=== PATIENT | female | born 1930 | race Caucasian/White ===

== ENCOUNTER → 2017-03-05 | Outpatient (CLI) | payer MEDICARE, OTHER ==
[2014-05-23 14:26] VITALS: BMI 28.4
[~2017-03-05] MED LIST: BENA40TA51 PO; CYA1000I IM; CYAN25004 INJ; DIAZ-308 PO; FISH OIL1 CAP PO; FURO-47 PO; GLUC-198 PO; HYDR-4309 PO; HYDR2TAB4 PO; HYDR2TAB74 PO; IOPAMIDOL 76% 75 ML INFUS BTL 75 ML ONE; LEVO75TA68 PO; LIDOCAINE/SOD BICARB 8.4% SYR ID ONE; LOR5 PO; LOR5/325 PO; MECL25TA27 PO; METOPROLOL; MULT1CAP41 PO; NS 0.9% 50 ML VIAL 50 ML ONE; ONDA4TAB PO; ONDA4TAB9 PO; ONDA4TAB97 PO; OXYC-865 PO; PANT40TA65 PO; PRAV40TA77 PO; SCOT TD; THY60 PO; THYR15TA6 PO; [UNRECOGNIZED DRUG - CODE] PO
--- NOTE | 2017-03-05 11:19 | RADIOLOGY IMAGING REPORT ---
FACILITY: [facility] [place] PATIENT NAME: Jing Arce : 1930 MR: [id number] V: [id number] EXAM DATE: ORDERING PHYSICIAN: BEBE ROMAN TECHNOLOGIST: Location: [facility] [place] Patient: Jing Arce : 1930 Visit/Account:[id number] Date of Sevice: 03/05/2017 ABD SINGLE ORGAN/QUAD/FOLLOWUP HISTORY: Right lower quadrant pain rule out hernia at incision line closed umbilicus COMPARISON: CT and pelvis June 27, 2014 FINDINGS: Multiple sonographic images of the right lower quadrant were submitted in location of patient's pain. The images were performed both with and without a Valsalva maneuver. There was no demonstration of a ventral hernia. No abnormal fluid collections identified in the subcutaneous soft tissues. No so lid mass is demonstrated in this location IMPRESSION: No sonographic abnormality identified along the intra-abdominal wall the right lower quadrant Report Dictated By: Deanna Salinas MD at 03/05/2017 11:12 AM Report E-Signed By: Deanna Salinas MD at 03/05/2017 11:15 AM [id number]
--- NOTE | 2017-03-05 12:22 | RADIOLOGY IMAGING REPORT ---
[place] [facility] [place] NAME: Jing Arce : 1930 MR: [id number] V: [id number] EXAM DATE: ORDERING PHYSICIAN: BEBE ROMAN TECHNOLOGIST: Location: [facility] [place] Patient: Jing Arce : 1930 Visit/Account:[id number] Date of Sevice: 03/05/2017 ABDOMEN/PELVIS WITH CONTRAST HISTORY: Right lower quadrant pain TECHNIQUE: Following administration of IV contrast contiguous axial images acquired through the abdom en/pelvis. Coronal and sagittal reformatting also performed. Dose Lowering Technique One of the following dose optimization techniques was utilized in the performance of this exam: Autom ated exposure control; adjustment of the mA and/or kV according to the patient's size; or use of an i terative reconstruction technique. Specific details can be referenced in the facility's radiology C T exam operational policy. CONTRAST: 75 mL Isovue-370 COMPARISON: CT abdomen pelvis June 27, 2014 FINDINGS: Visualized lung bases: Negative. Hepatobiliary: There are postsurgical changes from a cholecystectomy. There is a small area of decr eased attenuation seen along the inferior liver adjacent to the gallbladder which appears some are to the prior study and likely represents an area of focal fatty infiltration Spleen: Negative. Adrenals: Negative. Pancreas: Negative. Kidneys ureters or bladder: There Is a 3.1 cm cyst lower pole the right kidney. Tiny hypodensity low er pole of the left kidney is too small to characterize. There is mild perinephric stranding bilater ally. Genitalia: Hysterectomy GI: There are postsurgical changes of the sigmoid colon.. Post surgical changes also noted at the c ecum . There is a small hiatal hernia Vessels/spaces/nodes: Extensive vascular calcifications in the abdomen and pelvis Bones/soft tissues: There is a very small umbilical hernia containing fat that appears unchanged whe n compared to the prior study. Calcifications are identified in the rectus sheath to the right of mi dline above the level of the umbilicus. Minimal infiltrative changes are seen subcutaneous fat . There are spondylotic changes of the lumbar spine including bulging discs from L1 to S1 Additional findings: None pertinent. IMPRESSION: Is a tiny umbilical hernia containing fat that appears unchanged when compared the prior study. Ther e are minimal infiltrative changes seen in in the subcutaneous fat and calcifications in the rectus s anamika just to the right and superior to the umbilicus. This was present on the prior study with the infiltrative changes appearing much less prominent. Postsurgical changes from a cholecystectomy and hysterectomy Postsurgical changes of the sigmoid colon and cecum Small hiatal hernia Report Dictated By: Deanna Salinas MD at 03/05/2017 12:06 PM Report E-Signed By: Deanna Salinas MD at 03/05/2017 12:17 PM WSN:[email or web address]
== END ==
LOC: US 07:16
PROVIDERS: ATTEND Physician Assistant
DX: K44.9 Diaphragmatic hernia without obstruction or gangrene (principal); Z90.710 Acquired absence of both cervix and uterus; Z90.49 Acquired absence of other specified parts of digestive tract; K42.9 Umbilical hernia without obstruction or gangrene; L98.6 Other infiltrative disorders of the skin and subcutaneous tissue; R93.3 Abnormal findings on diagnostic imaging of other parts of digestive tract; N28.1 Cyst of kidney, acquired; I70.8 Atherosclerosis of other arteries; M47.817 Spondylosis without myelopathy or radiculopathy, lumbosacral region
CPT/HCPCS: 74177; 76705; J7050; Q9967

== ENCOUNTER 2017-04-29 00:53 | Emergency (ER) | payer MEDICARE, OTHER ==
[2014-05-23 14:26] VITALS: Wt 77.1 kg
[~2017-04-29 00:53] MED LIST changes: -IOPAMIDOL 76% 75 ML INFUS BTL 75 ML ONE; -LIDOCAINE/SOD BICARB 8.4% SYR ID ONE; -NS 0.9% 50 ML VIAL 50 ML ONE
--- NOTE | 2017-04-29 01:03 | ER Report ---
History and Physical Time Seen By MD: 01:03 Hx. of Stated Complaint: PT COMPLAINS OF STRONG "STOMACH PAINS" THAT RADIATE TO BACK ON BOTH SIDES. HPI/ROS CHIEF COMPLAINT: stomach pains HISTORY OF PRESENT ILLNESS: This is an 86 year old female. She is having some stomach pain. Diffuse pain, started about 6pm tonight. She has no nausea or vomiting. She had no diarrhea. Had a bowel movement when the pain started. No blood in stool. No fevers or chills. Did eat a big meal tonight and thinks that maybe that was part of the problem. 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 Nothing makes the pain worse. Walking and standing do make the pain better. Has some radiation to the sides and back. She has a history of pancreatitis in the past, but this feels differently. REVIEW OF SYSTEMS: Constitutional: No fever or chills. Eyes: No vision changes. ENT: No sore throat. No congestion. Cardiovascular: No chest pain. No palpitations. Respiratory: No cough. No shortness of breath. Gastrointestinal: As above. Genitourinary: No dysuria. Musculoskeletal: No extremity pain. Skin: No rashes. Neurological: No weakness. No headache. Allergies: Coded Allergies: celecoxib (Verified Allergy, Severe, TROUBLE BREATHING, 04/29/17) naproxen (Verified Allergy, Severe, TROUBLE BREATHING, 04/29/17) nitrofurantoin (Verified Allergy, Intermediate, SHORTNESS OF BREATH, ) ALSO CHILLS, SHAKING rofecoxib (Verified Allergy, Intermediate, SHORTNESS OF BREATH, 04/29/17) ALSO ITCHING, Penicillins (Verified Allergy, Unknown, ITCHING, 04/29/17) gabapentin (Verified Allergy, Unknown, fainting, 04/29/17) levofloxacin (Verified Allergy, Unknown, RASH, 04/29/17) Home Meds Reported Medications Pregabalin (LYRICA) 100 Mg Capsule, 100 MG PO TID, CAPSULE 04/29/17 Zolpidem Tartrate (AMBIEN) 5 Mg Tablet, 1 TAB PO QHS, TAB 04/29/17 Amlodipine Besylate (AMLODIPINE BESYLATE) 5 Mg Tablet, 1 TAB PO QDAY, TAB 04/29/17 Cyanocobalamin (Vitamin B-12) (Vitamin B12) 2,500 Mcg Tablet, 2000 UNITS INJ 08/19/15 Levothyroxine Sodium (SYNTHROID) 75 Mcg Tablet, 75 MCG PO QDAY 12/14/13 Discontinued Reported Medications Methyldopa (METHYLDOPA) 500 Mg Tablet, 1000 MG PO BID 11/17/14 Discontinued Scripts Diazepam (DIAZEPAM) 5 Mg Tablet, 2.5-5 MG PO 2-3XD Y for DIZZINESS, #15 TAB Prov:MAGDALENA VANCE BEHAVIORAL CONSULTANT 12/13/15 Ondansetron (ZOFRAN ODT) 4 Mg Tab.rapdis, 4 MG PO Q12H, #10 TAB TAKE 1 TABLET BY MOUTH EVERY 12 HOURS Prov:BG MCLAIN W[employer]ER 08/30/15 Hydrocodone Bit/Acetaminophen (NORCO 5-325 TABLET) 1 Each Tablet, 1 EACH PO Q4- 6H Y for PAIN, #20 TAB Prov:MAGDALENA VANCE BEHAVIORAL CONSULTANT 08/19/15 Reviewed Nurses Notes: Yes Hx Smoking: Yes (SMOKED < 1 PPD FOR 'YEARS') Smoking Status: Former Smoker Exposure to Second Hand Smoke?: No Hx Substance Use Disorder: No Hx Alcohol Use: Yes Constitutional Vital Sign - Last 24 Hours 04/29/17 04/29/17 04/29/17 04/29/17 00:58 00:59 01:00 01:08 Temp 97.7 Pulse 110 Resp 16 B/P (MAP) 154/75 (101) 154/75 141/84 (103) Pulse Ox 91 89 O2 Delivery Room Air 04/29/17 04/29/17 04/29/17 04/29/17 01:23 01:53 01:58 02:00 Pulse 80 75 73 B/P (MAP) 140/72 (94) Pulse Ox 92 94 94 04/29/17 02:13 Pulse 80 Pulse Ox 90 Physical Exam General Appearance: The patient is alert. Having mild acute distress due to pain. Eyes: Pupils are equal, round. No pallor, injection or icterus. ENT: Mucous membranes are moist. Normal oral mucosa. Posterior oropharynx is normal. Neck: Supple and non tender. No lymphadenopathy. Respiratory: Lungs are clear to auscultation. Cardiovascular: Regular rate and rhythm. No murmurs, gallops or rubs. Normal capillary refill. Gastrointestinal: Abdomen is soft, diffuse discomfort, no focal pain. Nondistended. No rebound or guarding. Hyperactive bowel sounds. No costovertebral angle tenderness with percussion. Neurological: Alert and oriented x3. Skin: Warm and dry. DIFFERENTIAL DIAGNOSIS: After history and physical exam, differential diagnosis was considered for abdominal pain including but not limited to appendicitis, enteritis, gastritis, pancreatitis, indigestion, bowel obstruction and urinary tract infection. Medical Decision Making Data Points Result Diagram: 04/29/17 0120 04/29/17 0120 Laboratory Hematology Test 04/29/17 01:20 Red Blood Count 4.65 M/uL (4.17-5.56) Mean Corpuscular Volume 94.6 fL (80.0-96.0) Mean Corpuscular Hemoglobin 31.6 pg (26.0-33.0) Mean Corpuscular Hemoglobin Concent 33.4 g/dL (32.0-36.0) Red Cell Distribution Width 13.4 % (11.5-14.5) Mean Platelet Volume 8.0 fL (7.2-11.1) Neutrophils (%) (Auto) 54.6 % (39.4-72.5) Lymphocytes (%) (Auto) 37.5 % (17.6-49.6) Monocytes (%) (Auto) 6.4 % (4.1-12.4) Eosinophils (%) (Auto) 1.2 % (0.4-6.7) Basophils (%) (Auto) 0.3 % (0.3-1.4) Nucleated RBC Relative Count (auto) 0.1 /100WBC Neutrophils # (Auto) 7.4 K/uL (2.0-7.4) Lymphocytes # (Auto) 5.0 K/uL (1.3-3.6) Monocytes # (Auto) 0.9 K/uL (0.3-1.0) Eosinophils # (Auto) 0.2 K/uL (0.0-0.5) Basophils # (Auto) 0.0 K/uL (0.0-0.1) Nucleated RBC Absolute Count (auto) 0.01 K/uL Sodium Level 140 mmol/L (137-145) Potassium Level 4.0 mmol/L (3.5-5.0) Chloride Level 106 mmol/L (98-107) Carbon Dioxide Level 20 mmol/L (22-31) Blood Urea Nitrogen 19 mg/dl (7-18) Creatinine 1.10 mg/dl (0.52-1.04) Glomerular Filtration Rate Calc 47.0 Random Glucose 127 mg/dl (75-110) Lactate 1.6 mmol/L (0.7-2.1) Calcium Level 9.4 mg/dl (8.4-10.2) Total Bilirubin 0.4 mg/dl (0.2-1.3) Aspartate Amino Transf (AST/SGOT) 20 U/L (0-35) Alanine Aminotransferase (ALT/SGPT) 33 U/L (0-56) Alkaline Phosphatase 73 U/L (0-126) Total Protein 6.7 gm/dl (6.3-8.2) Albumin 4.0 g/dl (3.5-5.0) Amylase Level 47 U/L (0-110) Lipase 57 U/L (23-300) Chemistry Test 04/29/17 01:20 White Blood Count 13.5 k/uL (4.5-11.0) Red Blood Count 4.65 M/uL (4.17-5.56) Hemoglobin 14.7 g/dL (12.0-16.0) Hematocrit 44.0 % (34.0-47.0) Mean Corpuscular Volume 94.6 fL (80.0-96.0) Mean Corpuscular Hemoglobin 31.6 pg (26.0-33.0) Mean Corpuscular Hemoglobin Concent 33.4 g/dL (32.0-36.0) Red Cell Distribution Width 13.4 % (11.5-14.5) Platelet Count 209 K/uL (150-450) Mean Platelet Volume 8.0 fL (7.2-11.1) Neutrophils (%) (Auto) 54.6 % (39.4-72.5) Lymphocytes (%) (Auto) 37.5 % (17.6-49.6) Monocytes (%) (Auto) 6.4 % (4.1-12.4) Eosinophils (%) (Auto) 1.2 % (0.4-6.7) Basophils (%) (Auto) 0.3 % (0.3-1.4) Nucleated RBC Relative Count (auto) 0.1 /100WBC Neutrophils # (Auto) 7.4 K/uL (2.0-7.4) Lymphocytes # (Auto) 5.0 K/uL (1.3-3.6) Monocytes # (Auto) 0.9 K/uL (0.3-1.0) Eosinophils # (Auto) 0.2 K/uL (0.0-0.5) Basophils # (Auto) 0.0 K/uL (0.0-0.1) Nucleated RBC Absolute Count (auto) 0.01 K/uL Glomerular Filtration Rate Calc 47.0 Lactate 1.6 mmol/L (0.7-2.1) Calcium Level 9.4 mg/dl (8.4-10.2) Total Bilirubin 0.4 mg/dl (0.2-1.3) Aspartate Amino Transf (AST/SGOT) 20 U/L (0-35) Alanine Aminotransferase (ALT/SGPT) 33 U/L (0-56) Alkaline Phosphatase 73 U/L (0-126) Total Protein 6.7 gm/dl (6.3-8.2) Albumin 4.0 g/dl (3.5-5.0) Amylase Level 47 U/L (0-110) Lipase 57 U/L (23-300) EKG/Imaging Imaging ACUTE ABDOMEN SERIES 3 VIEW HISTORY: Abdominal pain. COMPARISON: CT abdomen and pelvis dated 03/05/2017. FINDINGS: PA upright view of the chest, AP supine and AP upright views of the abdomen are obtained. Lines/tubes: None. Bowel gas pattern: No evidence of bowel obstruction or free air. Soft tissues: Right upper quadrant surgical clips. Pelvic phleboliths. Arterial calcifications. Bilateral axillary surgical clips. Bony structures: Degenerative changes in the spine. Mild bilateral hip osteoarthritis. Visualized lungs: Negative. IMPRESSION: 1. No evidence of bowel obstruction or free air. 2. No acute cardiopulmonary process. Report Dictated By: Myles Morfin MD at 04/29/2017 1:54 AM ED Course/Re-evaluation Clinical Indication for ER IV: IV Access ED Course After my initial evaluation, suggested doing a CT scan, but the patient did not want a CT as she had one a couple of weeks ago. Has seen Dr. Murray recently for evaluation for a hernia, and had no problems. She agreed to do blood and urine testing and a urinalysis. We did an abdominal 3 view, which she was alright with. Pain was treated with 2mg of IV Morphine and 4mg of IV Zofran. She is feeling much better now. Pain is mostly gone. Labs showed slight changes in her kidney function. Slight elevation of white blood cell count. Imaging with no signs of obstruction with a nonspecific bowel gas pattern. Discussed all of this with the patient. After our discussion, I offered further testing or tying some pain medicines at home to see how she does. She would prefer to go home with pain medicine and return if things are worsening and only do more testing at that time. Decision to Disposition Date: Apr 29, 2017 Decision to Disposition Time: 02:28 Depart Departure Latest Vital Signs Vital Signs Date Time Temp Pulse Resp B/P (MAP) Pulse Ox O2 Delivery O2 Flow Rate FiO2 04/29/17 02:13 80 90 04/29/17 02:00 140/72 (94) 04/29/17 00:59 97.7 16 Room Air Impression: Primary Impression: Abdominal pain Condition: Improved Disposition: HOME OR SELF-CARE Referrals: CHERIE HARTMANN MD (PCP) Patient Instructions: Acute Abdominal Pain (ED) Additional Instructions: We did not find any signs of bowel obstruction. Your labs are looking alright. You have some mild changes to your kidney function and need to increase fluid intake. No signs of pancreatitis. White count slightly elevated, but normal types of white cells in the differential. Pain has improved. If you have worsening pain, fevers/chills, or nausea/vomiting, please return to the ER for re-evaluation. You can use Zofran 4mg, one every 6 hours as needed for nausea. You can use Lortab 5/325, one every 4 hours as needed for pain. Problem Qualifiers Primary Impression: Abdominal pain Abdominal location: generalized Qualified Codes: R10.84 - Generalized abdominal pain ROBERT DUMONT MD Apr 29, 2017 01:03
[2017-04-29] MEDS ORDERED: AMLO-96 PO (01:04)
[2017-04-29] MEDS ORDERED: PREG100C44 PO (01:05)
[2017-04-29] MEDS ORDERED: ZOLP-1 PO (01:05)
[2017-04-29 01:44] LABS: PLATELET COUNT, AUTOMATED 209 K/uL (150-450)
[2017-04-29 02:00] VITALS: BP 140/72
[2017-04-29] MEDS ORDERED: ONDANSETRON 4 MG/2 ML VIAL IVP ONE (02:00)
[2017-04-29] MEDS ORDERED: MORPHINE 2 MG/ML SYR IVP ONE (02:00)
--- NOTE | 2017-04-29 02:03 | RADIOLOGY IMAGING REPORT ---
[place]AC[place] [facility] [place]IENT NAME: Jing Arce : 1930 MR: [id number] V: [id number] EXAM DATE: ORDERING PHYSICIAN: ROBERT DUMONT TECHNOLOGIST: Location: [facility] Patient: Jing Arce : 1930 Visit/Account:[id number] Date of Sevice: 04/29/2017 ACUTE ABDOMEN SERIES 3 VIEW HISTORY: Abdominal pain. COMPARISON: CT abdomen and pelvis dated 03/05/2017. FINDINGS: PA upright view of the chest, AP supine and AP upright views of the abdomen are obtained. Lines/tubes: None. Bowel gas pattern: No evidence of bowel obstruction or free air. Soft tissues: Right upper quadrant surgical clips. Pelvic phleboliths. Arterial calcifications. Bila teral axillary surgical clips. Bony structures: Degenerative changes in the spine. Mild bilateral hip osteoarthritis. Visualized lungs: Negative. IMPRESSION: 1. No evidence of bowel obstruction or free air. 2. No acute cardiopulmonary process. Report Dictated By: Myles Morfin MD at 04/29/2017 1:54 AM Report E-Signed By: Myles Morfin MD at 04/29/2017 1:57 AM WSN:[id number]
[2017-04-29] MEDS ORDERED: ACET/HYDROC 5/325MG TH ER ONLY 2 TAB/BOTTLE PO ONE (02:15)
[2017-04-29] MEDS ORDERED: ONDANSETRON 4 MG ODT TH SL ONE (02:15)
== END 2017-04-29 02:40 | disposition home or self-care (01) ==
LOC: ER 01:19
DX: R10.84 Generalized abdominal pain (principal)
CPT/HCPCS: 74022; 82150; 83605; 83690; 85025; 96374; 96375; 99284; J2270; J2405; Q0162; 82040; 82247; 82310; 82374; 82435; 82565; 82947; 84075; 84132; 84155; 84295; 84450; 84460; 84520; S0119

== ENCOUNTER 2017-04-29 14:28 | Inpatient (IN) | payer MEDICARE, OTHER ==
[2014-05-23 14:26] VITALS: Ht 166.4 cm; Wt 77.3 kg
[~2017-04-29] VITALS: Ht 166.4 cm; Wt 77.3 kg
[~2017-04-29 14:28] MED LIST changes: +AMLO-96 PO; +PREG100C44 PO; +ZOLP-1 PO
--- NOTE | 2017-04-29 14:58 | ER Report ---
History and Physical Time Seen By MD: 14:38 Hx. of Stated Complaint: was here last night for n/v/flu like symptoms. back today for the same thing. had zofran around 1:30pm today HPI/ROS chief concern: nausea/vomiting HPI: 86 y/o female presents with concern of nausea and vomiting x3 this morning. Seen in ED last night for stomach pain. Declined CT of abdomen. Returned today as she began vomiting "brown, rust-colored" fluid. Reports chills /sweats. Reports bowel movements have been watery since gallbladder removal three years ago, denies bowel changes. Denies urinary changes, heartburn, shortness of breath, dyspnea, chest pain. Review of Systems: HENT: Denies sore throat, heartburn Respiratory: Denies shortness of breath, dyspnea CV: Denies chest pain GI: Reports nausea/vomiting x3 this AM. Describes emesis as "brown, rust-colored ". Denies diarrhea. Allergies: Coded Allergies: celecoxib (Verified Allergy, Severe, TROUBLE BREATHING, 04/29/17) naproxen (Verified Allergy, Severe, TROUBLE BREATHING, 04/29/17) nitrofurantoin (Verified Allergy, Intermediate, SHORTNESS OF BREATH, ) ALSO CHILLS, SHAKING rofecoxib (Verified Allergy, Intermediate, SHORTNESS OF BREATH, 04/29/17) ALSO ITCHING, Penicillins (Verified Allergy, Unknown, ITCHING, 04/29/17) gabapentin (Verified Allergy, Unknown, fainting, 04/29/17) levofloxacin (Verified Allergy, Unknown, RASH, 04/29/17) Home Meds Reported Medications Pregabalin (LYRICA) 100 Mg Capsule, 100 MG PO TID, CAPSULE 04/29/17 Zolpidem Tartrate (AMBIEN) 5 Mg Tablet, 1 TAB PO QHS, TAB 04/29/17 Amlodipine Besylate (AMLODIPINE BESYLATE) 5 Mg Tablet, 1 TAB PO QDAY, TAB 04/29/17 Cyanocobalamin (Vitamin B-12) (Vitamin B12) 2,500 Mcg Tablet, 2000 UNITS INJ 08/19/15 Levothyroxine Sodium (SYNTHROID) 75 Mcg Tablet, 75 MCG PO QDAY 12/14/13 Discontinued Reported Medications Methyldopa (METHYLDOPA) 500 Mg Tablet, 1000 MG PO BID 11/17/14 Discontinued Scripts Diazepam (DIAZEPAM) 5 Mg Tablet, 2.5-5 MG PO 2-3XD Y for DIZZINESS, #15 TAB Prov:MAGDALENA VANCE [employer]KE [employer] WORK[employer] 12/13/15 Ondansetron (ZOFRAN ODT) 4 Mg Tab.rapdis, 4 MG PO Q12H, #10 TAB TAKE 1 TABLET BY MOUTH EVERY 12 HOURS Prov:BG MCLAIN NP 08/30/15 Hydrocodone Bit/Acetaminophen (NORCO 5-325 TABLET) 1 Each Tablet, 1 EACH PO Q4- 6H Y for PAIN, #20 TAB Prov:MAGDALENA VANCE [employer] 08/19/15 Past Medical/Surgical History History of hysterectomy, cholecystectomy, bowel resection d/t diverticulitis 2012; hospitalization for pancreatitis 2014; history of breast and skin cancer Hypertension, hypercholesterolemia. Reviewed Nurses Notes: Yes Old Medical Records Reviewed: Yes Hx Smoking: Yes (SMOKED < 1 PPD FOR 'YEARS') Smoking Status: Former Smoker Exposure to Second Hand Smoke?: No Hx Substance Use Disorder: No Hx Alcohol Use: Yes Constitutional Vital Sign - Last 24 Hours 04/29/17 04/29/17 04/29/17 04/29/17 14:32 14:34 14:43 14:50 Temp 96.8 Pulse 70 72 Resp 16 B/P (MAP) 138/56 138/56 (83) Pulse Ox 85 96 O2 Delivery Room Air O2 Flow Rate 2.0 04/29/17 04/29/17 04/29/17 04/29/17 14:58 15:00 15:13 15:28 Pulse 69 68 69 Resp 29 B/P (MAP) ???/??? (7595) Pulse Ox 97 94 97 04/29/17 04/29/17 04/29/17 04/29/17 15:30 15:43 15:56 15:58 Pulse 72 81 Resp 10 B/P (MAP) ???/??? (4655) 138/75 (96) Pulse Ox 98 90 04/29/17 04/29/17 04/29/17 04/29/17 16:30 16:33 16:48 16:53 Pulse 80 84 74 Resp 30 21 20 B/P (MAP) 128/60 (82) 04/29/17 04/29/17 04/29/17 04/29/17 17:00 17:08 17:23 17:30 Pulse 78 77 Resp 22 17 B/P (MAP) 121/71 (88) 142/71 (94) 04/29/17 04/29/17 04/29/17 04/29/17 17:38 17:53 17:58 18:00 Pulse 77 77 70 Resp 19 20 22 B/P (MAP) 122/58 (79) Pulse Ox 94 04/29/17 04/29/17 04/29/17 04/29/17 18:13 18:28 18:30 18:43 Pulse 84 76 73 Resp 37 12 35 B/P (MAP) 118/32 (60) 04/29/17 04/29/17 04/29/17 18:58 19:00 19:13 Pulse 69 67 Resp 14 19 B/P (MAP) 120/57 (78) Intake and Output 04/29/17 04/29/17 04/30/17 15:00 23:00 07:00 Intake Total 1000 ml Balance 1000 ml Physical Exam Physical Exam: General: Alert, oriented x3. Patient appears in some discomfort during exam. HENT: Posterior pharynx pink, no lymphadenopathy. Respiratory: Clear to auscultation bilaterally. No respiratory distress. CV: Regular rate and rhythm. No peripheral edema. GI: Hypoactive bowel sounds left quadrants. Bowel sounds normoactive right quadrants. Scattered sounds of tympany and dullness to percussion. Tenderness to palpation right quadrants, with palpable adhesions. No hepatosplenomegaly. Negative CVA tenderness. After obtaining thorough HPI and ROS, the following differentials were considered but not limited to: bowel obstruction, hepatitis, pancreatitis, TX, diverticulitis, and UTI. Medical Decision Making Data Points Result Diagram: 04/29/17 1446 04/29/17 1446 Laboratory Hematology Test 04/29/17 14:46 04/29/17 16:01 Red Blood Count 4.62 M/uL (4.17-5.56) Mean Corpuscular Volume 94.7 fL (80.0-96.0) Mean Corpuscular Hemoglobin 31.8 pg (26.0-33.0) Mean Corpuscular Hemoglobin Concent 33.5 g/dL (32.0-36.0) Red Cell Distribution Width 13.7 % (11.5-14.5) Mean Platelet Volume 8.4 fL (7.2-11.1) Neutrophils (%) (Auto) 70.3 % (39.4-72.5) Lymphocytes (%) (Auto) 23.3 % (17.6-49.6) Monocytes (%) (Auto) 5.2 % (4.1-12.4) Eosinophils (%) (Auto) 0.4 % (0.4-6.7) Basophils (%) (Auto) 0.8 % (0.3-1.4) Nucleated RBC Relative Count (auto) 0.1 /100WBC Neutrophils # (Auto) 10.2 K/uL (2.0-7.4) Lymphocytes # (Auto) 3.4 K/uL (1.3-3.6) Monocytes # (Auto) 0.8 K/uL (0.3-1.0) Eosinophils # (Auto) 0.1 K/uL (0.0-0.5) Basophils # (Auto) 0.1 K/uL (0.0-0.1) Nucleated RBC Absolute Count (auto) 0.02 K/uL Peripheral Blood Smear Yes Y/N Prothrombin Time 14.0 seconds (12.0-14.4) Prothromb Time International Ratio 1.08 Sodium Level 140 mmol/L (137-145) Potassium Level 4.8 mmol/L (3.5-5.0) Chloride Level 104 mmol/L (98-107) Carbon Dioxide Level 21 mmol/L (22-31) Blood Urea Nitrogen 23 mg/dl (7-18) Creatinine 1.10 mg/dl (0.52-1.04) Glomerular Filtration Rate Calc 47.0 Random Glucose 135 mg/dl (75-110) Calcium Level 9.1 mg/dl (8.4-10.2) Total Bilirubin 0.7 mg/dl (0.2-1.3) Aspartate Amino Transf (AST/SGOT) 33 U/L (0-35) Alanine Aminotransferase (ALT/SGPT) 33 U/L (0-56) Alkaline Phosphatase 81 U/L (0-126) Troponin I < 0.012 ng/ml Total Protein 7.4 gm/dl (6.3-8.2) Albumin 4.3 g/dl (3.5-5.0) Amylase Level 74 U/L (0-110) Lipase 44 U/L (23-300) Urine Color Yellow Urine Clarity Slightly-cloudy Urine pH 5.0 pH (4.8-9.5) Urine Specific [place] 1.018 Urine Protein Negative mg/dL (NEGATIVE) Urine Glucose (UA) Negative mg/dL (NEGATIVE) Urine Ketones Trace mg/dL (NEGATIVE) Urine Blood Negative (NEGATIVE) Urine Nitrite Negative (NEGATIVE) Urine Bilirubin Negative (NEGATIVE) Urine Urobilinogen Negative mg/dL (0.2-1.9) Urine Leukocyte Esterase Negative (NEGATIVE) Urine RBC None /HPF (0-2/HPF) Urine WBC 1 /HPF (0-5/HPF) Urine Squamous Epithelial Cells Moderate /LPF (</=FEW) Urine Renal Epithelial Cells Few /LPF (NONE-FEW) Urine Bacteria Negative /HPF (NONE-FEW) Urine Hyaline Casts Few /LPF (NONE-FEW) Urine Mucus Few /HPF (NONE-FEW) Chemistry Test 04/29/17 14:46 04/29/17 16:01 White Blood Count 14.5 k/uL (4.5-11.0) Red Blood Count 4.62 M/uL (4.17-5.56) Hemoglobin 14.7 g/dL (12.0-16.0) Hematocrit 43.8 % (34.0-47.0) Mean Corpuscular Volume 94.7 fL (80.0-96.0) Mean Corpuscular Hemoglobin 31.8 pg (26.0-33.0) Mean Corpuscular Hemoglobin Concent 33.5 g/dL (32.0-36.0) Red Cell Distribution Width 13.7 % (11.5-14.5) Platelet Count 231 K/uL (150-450) Mean Platelet Volume 8.4 fL (7.2-11.1) Neutrophils (%) (Auto) 70.3 % (39.4-72.5) Lymphocytes (%) (Auto) 23.3 % (17.6-49.6) Monocytes (%) (Auto) 5.2 % (4.1-12.4) Eosinophils (%) (Auto) 0.4 % (0.4-6.7) Basophils (%) (Auto) 0.8 % (0.3-1.4) Nucleated RBC Relative Count (auto) 0.1 /100WBC Neutrophils # (Auto) 10.2 K/uL (2.0-7.4) Lymphocytes # (Auto) 3.4 K/uL (1.3-3.6) Monocytes # (Auto) 0.8 K/uL (0.3-1.0) Eosinophils # (Auto) 0.1 K/uL (0.0-0.5) Basophils # (Auto) 0.1 K/uL (0.0-0.1) Nucleated RBC Absolute Count (auto) 0.02 K/uL Peripheral Blood Smear Yes Y/N Prothrombin Time 14.0 seconds (12.0-14.4) Prothromb Time International Ratio 1.08 Glomerular Filtration Rate Calc 47.0 Calcium Level 9.1 mg/dl (8.4-10.2) Total Bilirubin 0.7 mg/dl (0.2-1.3) Aspartate Amino Transf (AST/SGOT) 33 U/L (0-35) Alanine Aminotransferase (ALT/SGPT) 33 U/L (0-56) Alkaline Phosphatase 81 U/L (0-126) Troponin I < 0.012 ng/ml Total Protein 7.4 gm/dl (6.3-8.2) Albumin 4.3 g/dl (3.5-5.0) Amylase Level 74 U/L (0-110) Lipase 44 U/L (23-300) Urine Color Yellow Urine Clarity Slightly-cloudy Urine pH 5.0 pH (4.8-9.5) Urine Specific [place] 1.018 Urine Protein Negative mg/dL (NEGATIVE) Urine Glucose (UA) Negative mg/dL (NEGATIVE) Urine Ketones Trace mg/dL (NEGATIVE) Urine Blood Negative (NEGATIVE) Urine Nitrite Negative (NEGATIVE) Urine Bilirubin Negative (NEGATIVE) Urine Urobilinogen Negative mg/dL (0.2-1.9) Urine Leukocyte Esterase Negative (NEGATIVE) Urine RBC None /HPF (0-2/HPF) Urine WBC 1 /HPF (0-5/HPF) Urine Squamous Epithelial Cells Moderate /LPF (</=FEW) Urine Renal Epithelial Cells Few /LPF (NONE-FEW) Urine Bacteria Negative /HPF (NONE-FEW) Urine Hyaline Casts Few /LPF (NONE-FEW) Urine Mucus Few /HPF (NONE-FEW) Coagulation Test 3/13/18 14:46 Prothrombin Time 14.0 seconds Prothromb Time International Ratio 1.08 Urinalysis Test 04/29/17 16:01 Urine Color Yellow Urine Clarity Slightly-cloudy Urine pH 5.0 pH (4.8-9.5) Urine Specific [place] 1.018 Urine Protein Negative mg/dL (NEGATIVE) Urine Glucose (UA) Negative mg/dL (NEGATIVE) Urine Ketones Trace mg/dL (NEGATIVE) Urine Blood Negative (NEGATIVE) Urine Nitrite Negative (NEGATIVE) Urine Bilirubin Negative (NEGATIVE) Urine Urobilinogen Negative mg/dL (0.2-1.9) Urine Leukocyte Esterase Negative (NEGATIVE) Urine RBC None /HPF (0-2/HPF) Urine WBC 1 /HPF (0-5/HPF) Urine Squamous Epithelial Cells Moderate /LPF (</=FEW) Urine Renal Epithelial Cells Few /LPF (NONE-FEW) Urine Bacteria Negative /HPF (NONE-FEW) Urine Hyaline Casts Few /LPF (NONE-FEW) Urine Mucus Few /HPF (NONE-FEW) EKG/Imaging Monitor Interpretation: Normal Sinus Rhythm (incomplete right bundle branch block) Imaging ABDOMEN/PELVIS WITH CONTRAST Additional pertinent History: Abdominal pain TECHNIQUE: Spiral scan was through the abdomen and pelvis during injection of nonionic iodinated intravenous contrast. Contrast: 75 mL of IV Isovue-370. COMPARISON STUDIES: 03/05/2017. One of the following dose optimization techniques was utilized in the performance of this exam: Automated exposure control; adjustment of the mA and/ or kV according to the patient's size; or use of an iterative reconstruction technique. Specific details can be referenced in the facility's radiology CT exam operational policy. FINDINGS: Liver / biliary: Status post cholecystectomy Pancreas: negative Spleen: negative Adrenal glands: negative Kidneys / retroperitoneum: Simple appearing 3 cm cyst in the right kidney. Parapelvic cysts seen in the left kidney. Pelvic structures: Status post hysterectomy. Bowel / peritoneum / mesenteries: Small bowel obstruction noted. Transition point noted in the anterior mid abdomen near a suture line. This is well seen on axial images 79 through 93. The most distal small bowel obstructive loop has fecal lysed material (image 86) there is a colonic enteric suture line seen in the descending colon. There is also a colonic enteric anastomotic line seen in the sigmoid colon. There are diverticuli without evidence of diverticulitis. Vessels: negative Musculoskeletal / Body wall: negative Lymph node assessment: negative Lower chest: negative IMPRESSION: Small bowel obstruction with transition point in the anterior mid abdomen at the point of probable HCC small bowel up against the anterior abdominal wall near a suture line. Results were discussed with MAGDALENA VANCE at 04/29/2017 5:12 PM. Report Dictated By: Jose E Barrera MD at 04/29/2017 4:50 PM Report E-Signed By: Jose E Barrera MD at 04/29/2017 5:12 PM CHEST PA AND LAT INDICATION: Abdomen pain COMPARISON: August 30, 2015 FINDINGS: Cholecystectomy clips and bilateral axillary clips noted. The cardiac silhouette is normal in size. No pneumothorax. Minimal biapical pleural-parenchymal scarring. Otherwise clear lungs. No acute osseous abnormality. No apparent free air. No pleural fluid. IMPRESSION: No acute finding. Report Dictated By: Valente Moy MD at 04/29/2017 4:51 PM Report E-Signed By: Valente Moy MD at 04/29/2017 4:52 PM Portable chest, one view. HISTORY: NG tube placement. COMPARISON: 04/29/2017 at 0427 hours. 2 images were obtained. EKG leads and oxygen tubing project on the chest. A vague lucent line projects on the neck. The aortic knob is calcified. The heart and mediastinum are otherwise unremarkable. Pulmonary vessels are unremarkable. The lungs are clear. The pleural surfaces are unremarkable. No pneumothorax. Metal clips are present in the right upper abdomen and both axillae. IMPRESSION: The NG tube is not well-visualized. Report Dictated By: Otto Darby MD at 04/29/2017 7:10 PM Report E-Signed By: Otto Darby MD at 04/29/2017 7:14 PM ED Course/Re-evaluation ED Course Patient admitted to exam room. Thorough HPI and ROS obtained. Physical exam: Respiratory: Clear to auscultation bilaterally. No respiratory distress. CV: Regular rate and rhythm. No peripheral edema. GI: Hypoactive bowel sounds left quadrants. Bowel sounds normoactive right quadrants. Scattered sounds of tympany and dullness to percussion. Tenderness to palpation right quadrants, with palpable adhesions. No hepatosplenomegaly. Negative CVA tenderness. After obtaining thorough HPI and ROS, the following differentials were considered but not limited to: bowel obstruction, hepatitis, pancreatitis, TX, diverticulitis, and UTI. Labs obtained included CBC, CMP, UA, PT, troponin, Imaging: CXR, ABD CT 500ml normal saline administered. CT IMPRESSION: Small bowel obstruction with transition point in the anterior mid abdomen at the point of probable HCC small bowel up against the anterior abdominal wall near a suture line. CXR with no abnormal findings. Findings and need to admit to hospital discussed with patient. NG tube placed without complications. Xray to verify placement. Patient verbalised understanding and agreed to plan. Decision to Disposition Date: Apr 29, 2017 Decision to Disposition Time: 18:00 Depart Departure Latest Vital Signs Vital Signs Date Time Temp Pulse Resp B/P (MAP) Pulse Ox O2 Delivery O2 Flow Rate FiO2 04/29/17 19:13 67 19 04/29/17 19:00 120/57 (78) 04/29/17 17:38 94 04/29/17 14:50 2.0 04/29/17 14:32 96.8 Room Air Impression: Primary Impression: Small bowel obstruction due to adhesions Condition: Condition Unchanged Disposition: Admitted from ER Referrals: CHERIE HARTMANN MD (PCP) MAGDALENA VANCE Apr 29, 2017 14:58
[2017-04-29 15:31] LABS: INR 1.08
--- NOTE | 2017-04-29 15:35 | EKG ---
FACILITY: [facility] - [place] PATIENT NAME: YONAS DELONG : [id number] MR: [id number] V: [id number] EXAM DATE: ORDERING PHYSICIAN: MAGDALENA VANCE TECHNOLOGIST: RICHARD Test Reason : ABD PAIN Blood Pressure : / mmHG Vent. Rate : 064 BPM Atrial Rate : 064 BPM P-R Int : 186 ms QRS Dur : 092 ms QT Int : 426 ms P-R-T Axes : 065 -12 083 degrees QTc Int : 439 ms Normal sinus rhythm Incomplete right bundle branch block Borderline ECG When compared with ECG of 23-AUG-2016 09:37, No significant change was found Confirmed by RAFAELA DILLARD ([id number]) on 04/29/2017 11:45:48 PM Referred By: RAJIV Confirmed By:RAFAELA DILLARD
[2017-04-29 15:38] LABS: PLATELET COUNT, AUTOMATED 231 K/uL (150-450)
[2017-04-29] MEDS ORDERED: NS(*) 0.9% 500 ML BAG 500 ML IV ONE (15:40)
[2017-04-29] MEDS ORDERED: IOPAMIDOL 76% 75 ML INFUS BTL 75 ML ONE (16:10)
[2017-04-29] MEDS ORDERED: NS(*) 0.9% 1000 ML BAG 1,000 ML IV ONE (16:15)
--- NOTE | 2017-04-29 16:57 | RADIOLOGY IMAGING REPORT ---
FACILITY: [facility] - [place] PATIENT NAME: Jing Arce : 1930 MR: [id number] V: [id number] EXAM DATE: ORDERING PHYSICIAN: MAGDALENA VANCE TECHNOLOGIST: [place] [facility] [place] Jing Arce : 1930 Visit/Account:[id number] Date of Sevice: 04/29/2017 CHEST PA AND LAT INDICATION: Abdomen pain COMPARISON: August 30, 2015 FINDINGS: Cholecystectomy clips and bilateral axillary clips noted. The cardiac silhouette is normal in size. No pneumothorax. Minimal biapical pleural-parenchymal scarring. Otherwise clear lungs. No acute osseous abnormality. No apparent free air. No pleural fluid. IMPRESSION: No acute finding. Report Dictated By: Valente Moy MD at 04/29/2017 4:51 PM Report E-Signed By: Valente Moy MD at 04/29/2017 4:52 PM WSN:[id number]
--- NOTE | 2017-04-29 17:16 | RADIOLOGY IMAGING REPORT ---
FACILITY: [facility] PATIENT NAME: Jing Arce : 1930 MR: [id number] V: [id number] EXAM DATE: ORDERING PHYSICIAN: MAGDALENA VANCE TECHNOLOGIST: Location: [facility] Patient: Jing Arce : 1930 Visit/Account:[id number] Date of Sevice: 04/29/2017 ABDOMEN/PELVIS WITH CONTRAST Additional pertinent History: Abdominal pain TECHNIQUE: Spiral scan was through the abdomen and pelvis during injection of nonionic iodinated in travenous contrast. Contrast: 75 mL of IV Isovue-370. COMPARISON STUDIES: 03/05/2017. One of the following dose optimization techniques was utilized in the performance of this exam: Autom ated exposure control; adjustment of the mA and/or kV according to the patient's size; or use of an i terative reconstruction technique. Specific details can be referenced in the facility's radiology C T exam operational policy. FINDINGS: Liver / biliary: Status post cholecystectomy Pancreas: negative Spleen: negative Adrenal glands: negative Kidneys / retroperitoneum: Simple appearing 3 cm cyst in the right kidney. Parapelvic cysts seen in t he left kidney. Pelvic structures: Status post hysterectomy. Bowel / peritoneum / mesenteries: Small bowel obstruction noted. Transition point noted in the anteri or mid abdomen near a suture line. This is well seen on axial images 79 through 93. The most distal s mall bowel obstructive loop has fecal lysed material (image 86) there is a colonic enteric suture cierra e seen in the descending colon. There is also a colonic enteric anastomotic line seen in the sigmoid colon. There are diverticuli without evidence of diverticulitis. Vessels: negative Musculoskeletal / Body wall: negative Lymph node assessment: negative Lower chest: negative IMPRESSION: Small bowel obstruction with transition point in the anterior mid abdomen at the point of probable HC C small bowel up against the anterior abdominal wall near a suture line. Results were discussed with MAGDALENA VANCE at 04/29/2017 5:12 PM. Report Dictated By: Jose E Barrera MD at 04/29/2017 4:50 PM Report E-Signed By: Jose E Barrera MD at 04/29/2017 5:12 PM WSN:[id number]
[2017-04-29] MEDS ORDERED: HYDROmorphone PCA 6 MG/30 ML IV PRN (18:25)
[2017-04-29] MEDS ORDERED: NALOXONE HCL 0.4 MG/ML VIAL IVP PRN (18:25)
[2017-04-29] MEDS ORDERED: FLUSH 10 ML SYR IVP PRN (18:25)
--- NOTE | 2017-04-29 19:19 | RADIOLOGY IMAGING REPORT ---
FACILITY: [facility] - [place] PATIENT NAME: Jing Arce : 1930 MR: [id number] V: [id number] EXAM DATE: ORDERING PHYSICIAN: MAGDALENA VANCE TECHNOLOGIST: Location: [facility] [place] Patient: Jing Arce : 1930 Visit/Account:[id number] Date of Sevice: 04/29/2017 Portable chest, one view. HISTORY: NG tube placement. COMPARISON: 04/29/2017 at 0427 hours. 2 images were obtained. EKG leads and oxygen tubing project on the chest. A vague lucent line project s on the neck. The aortic knob is calcified. The heart and mediastinum are otherwise unremarkable. P ulmonary vessels are unremarkable. The lungs are clear. The pleural surfaces are unremarkable. No pn eumothorax. Metal clips are present in the right upper abdomen and both axillae. IMPRESSION: The NG tube is not well-visualized. Report Dictated By: Otto Darby MD at 04/29/2017 7:10 PM Report E-Signed By: Otto Darby MD at 04/29/2017 7:14 PM WSN:[id number]
[2017-04-29 19:45] VITALS: BP 133/69
--- NOTE | 2017-04-29 20:24 | Gen Surgery History & Physical ---
History of Present Illness Chief Complaint N/V, abdominal pain History of Present Illness 86yo female presents with 1 days of abdominal pain yesterday that actually resolved but then she develop N/V today. This prompted her to come in to the ER. CT in the ER reveals a SBO. She has had several abdominal surgeries including sigmoid colectomy for diverticulitis, ileocectomy for cecal volvulus, fascial wound dehiscence requiring reclosure, and a lap jos. She has never before had an SBO. Last BM was yesterday morning. No flatus since yesterday morning either. History Problems: (1) Hearing loss Status: Chronic (2) Hyperlipidemia Status: Chronic (3) Hypothyroidism Status: Chronic (4) DJD (degenerative joint disease) Status: Chronic (5) HTN (hypertension) Status: Chronic (6) History of skin cancer Status: Chronic (7) History of breast cancer Status: Chronic (8) History of hysterectomy Status: Chronic (9) History of colon resection Status: Chronic (10) History of arthroscopic knee surgery Status: Chronic (11) History of bilateral cataract extraction Status: Chronic (12) History of lumpectomy of both breasts Status: Chronic Home Meds Reported Medications Pregabalin (LYRICA) 100 Mg Capsule, 100 MG PO TID, CAPSULE 04/29/17 Zolpidem Tartrate (AMBIEN) 5 Mg Tablet, 1 TAB PO QHS, TAB 04/29/17 Amlodipine Besylate (AMLODIPINE BESYLATE) 5 Mg Tablet, 1 TAB PO QDAY, TAB 04/29/17 Cyanocobalamin (Vitamin B-12) (Vitamin B12) 2,500 Mcg Tablet, 2000 UNITS INJ 08/19/15 Levothyroxine Sodium (SYNTHROID) 75 Mcg Tablet, 75 MCG PO QDAY 12/14/13 Discontinued Reported Medications Methyldopa (METHYLDOPA) 500 Mg Tablet, 1000 MG PO BID 11/17/14 Discontinued Scripts Diazepam (DIAZEPAM) 5 Mg Tablet, 2.5-5 MG PO 2-3XD Y for DIZZINESS, #15 TAB Prov:MAGDALENA VANCE P[employer]ING RO[employer] WORKER 12/13/15 Ondansetron (ZOFRAN ODT) 4 Mg Tab.rapdis, 4 MG PO Q12H, #10 TAB TAKE 1 TABLET BY MOUTH EVERY 12 HOURS Prov:BG MCLAIN NP 08/30/15 Hydrocodone Bit/Acetaminophen (NORCO 5-325 TABLET) 1 Each Tablet, 1 EACH PO Q4- 6H Y for PAIN, #20 TAB Prov:MAGDALENA VANCE PACKING ROOM WORKER 08/19/15 Allergies: Coded Allergies: celecoxib (Verified Allergy, Severe, TROUBLE BREATHING, 04/29/17) naproxen (Verified Allergy, Severe, TROUBLE BREATHING, 04/29/17) nitrofurantoin (Verified Allergy, Intermediate, SHORTNESS OF BREATH, ) ALSO CHILLS, SHAKING rofecoxib (Verified Allergy, Intermediate, SHORTNESS OF BREATH, 04/29/17) ALSO ITCHING, Penicillins (Verified Allergy, Unknown, ITCHING, 04/29/17) gabapentin (Verified Allergy, Unknown, fainting, 04/29/17) levofloxacin (Verified Allergy, Unknown, RASH, 04/29/17) Patient History: FH: of natural cause MOTHER, FH: prostate cancer FATHER, Review of Systems All Systems Reviewed/Normal: Yes, Except as Noted Gastrointestinal: Nausea, Vomiting, Abdominal Pain Exam General Appearance: Alert, Awake, No Acute Distress, Afebrile Neuro: No Gross deficits Eyes: PERRLA GI: Other (Soft, mild diffuse TTP) Extremities: Warm, Perfused Medical Decision Making Data Points Result Diagram: 04/29/17 1446 04/29/17 1446 Assessment and Plan Problems: (1) Small bowel obstruction due to adhesions Status: Acute Assessment & Plan: 04/29/17: Admit, NPO, NG tube decompression, IV fluids. Will start with conservative therapy. If she fails to improve over the next 2- 3 days, she may require surgical exploration to determine the cause of the SBO and address it surgically. Central Venous Access Medical Necessity for Access: IV Access, Medication Administration Condition Stable. Time Spent: < 30 min Venous Thromboembolism VTE Risk Physician Assess for VTE Risk: Yes Patient's VTE Risk: Low VTE Diagnostic Test 2 Days Prior to Admit: No Antithrombotics Is Pt On Any Antithrombotics?: Yes CHERIE CORONA MD Apr 29, 2017 20:24
--- NOTE | 2017-04-29 21:02 | RADIOLOGY IMAGING REPORT ---
FACILITY: [facility] PATIENT NAME: Jing Arce : 1930 MR: [id number] V: [id number] EXAM DATE: ORDERING PHYSICIAN: CHERIE CORONA TECHNOLOGIST: Location: [facility] [place] Patient: Jing Arce : 1930 Visit/Account:[id number] Date of Sevice: 04/29/2017 KUB SINGLE VIEW ABDOMEN HISTORY: Line placement COMPARISON: Chest x-ray dated 04/29/2017 at 6:25 PM. FINDINGS: A single AP supine view of the abdomen is obtained. Lines/tubes: The enteric tube terminates in the distal esophagus. Bowel gas pattern: Normal. Soft tissues: Surgical clips in the bilateral axilla and right upper quadrant. Bony structures: Negative. Visualized lung bases: Negative. IMPRESSION: The enteric tube terminates in the distal esophagus. Advancement by approximately 12 cm is recommende d. Results were called to Jame Baker at 04/29/2017 8:54 PM. Report Dictated By: Myles Morfin MD at 04/29/2017 8:53 PM Report E-Signed By: Myles Morfin MD at 04/29/2017 8:58 PM WSN:[email or web address]
[2017-04-29] MEDS: ZOLPIDEM TARTRATE 5 MG TAB PO SCH (21:12)
[2017-04-29] MEDS: PREGABALIN 50 MG CAP PO SCH (21:12)
[2017-04-29] MEDS: ACETAMINOPHEN(*)1000 MG/100 ML 100 ML IVPB PRN (21:20)
[2017-04-29] MEDS: NS(*) 0.9% 1000 ML BAG 1,000 ML IV PRN (21:20)
[2017-04-30] MEDS: LEVOTHYROXINE SOD 0.075 MG TAB PO SCH (05:00)
[2017-04-30] MEDS: ONDANSETRON 4 MG/2 ML VIAL IVP PRN (06:32)
[2017-04-30 06:37] LABS: PLATELET COUNT, AUTOMATED 216 K/uL (150-450)
--- NOTE | 2017-04-30 07:23 | General Surgery Progress Note ---
Subjective Progress Notes Subjective Feeling nauseated this morning. No abdominal pain. Unable to place NG last night, unable to advance tube into stomach and patient eventually refused further efforts due to significant discomfort. No flatus or BM. Physical Exam Vital Signs Date Time Temp Pulse Resp B/P (MAP) Pulse Ox O2 Delivery O2 Flow Rate FiO2 04/29/17 20:26 94 Nasal Cannula 2.0 04/29/17 19:45 97.9 71 16 133/69 (90) General Appearance: Alert, Awake, No Acute Distress, Afebrile GI: Other (Soft, mildly distended, mild TTP to right of midline) Extremities: Warm, Perfused Result Diagram: 04/30/17 0601 04/30/17 06 Monitor Interpretation: Normal Sinus Rhythm (incomplete right bundle branch block) Assessment and Plan Problems: (1) Small bowel obstruction due to adhesions Status: Acute Assessment & Plan: 04/29/17: Admit, NPO, NG tube decompression, IV fluids. Will start with conservative therapy. If she fails to improve over the next 2- 3 days, she may require surgical exploration to determine the cause of the SBO and address it surgically. 04/30/17: Persistent SBO with nausea this morning. Will reattempt NG placement today with topical analgesics. May need to place endoscopically if unable to place NG tube at bedside. Would like to make every effort to avoid surgery if possible in this 86yo female with numerous major abdominal surgeries. Central Venous Access Medical Necessity for Access: IV Access, Medication Administration Condition STable. Time Spent: < 30 min Exam Sepsis Risk: No Definite Risk CHERIE CORONA MD Apr 30, 2017 07:23
--- NOTE | 2017-04-30 07:24 | RADIOLOGY IMAGING REPORT ---
FACILITY: [facility] PATIENT NAME: Jing Arce : 1930 MR: [id number] V: [id number] EXAM DATE: ORDERING PHYSICIAN: CHERIE CORONA TECHNOLOGIST: Location: [facility] - [place] Patient: Jing Arce : 1930 Visit/Account:[id number] Date of Sevice: 04/30/2017 Exam type: KUB SINGLE VIEW ABDOMEN Indication: Small bowel obstruction. Right upper quadrant pain. Comparison: April 29, 2017 at. Findings: Bowel gas seen throughout the abdomen in a nonobstructive pattern. There are no pathologic calcifications identified. IMPRESSION: No acute findings. Report Dictated By: Valente Willard MD at 04/30/2017 7:17 AM Report E-Signed By: Valente Willard MD at 04/30/2017 7:19 AM WSN:[id number]
[2017-04-30] MEDS ORDERED: BENZOCAINE/TETRACAINE/BUTAMBEN TOP ONE (07:30)
[2017-04-30] MEDS ORDERED: LIDOCAINE 2% JELLY 30 ML TUBE TP ONE (07:30)
[2017-04-30 08:31] VITALS: BP 125/60
--- NOTE | 2017-04-30 08:43 | RADIOLOGY IMAGING REPORT ---
FACILITY: [facility] [place] PATIENT NAME: Jing Arce : 1930 MR: [id number] V: [id number] EXAM DATE: ORDERING PHYSICIAN: CHERIE CORONA TECHNOLOGIST: [place] [facility] [place] Jing Arce : 1930 Visit/Account:[id number] Date of Sevice: 04/30/2017 Exam type: CHEST SINGLE AP History: NG tube placement Comparison: April 29, 2017. Findings: The NG/OG tube has been repositioned the distal tip now projecting over the left upper quadrant. The lungs are free of consolidation. There is no evidence of pleural effusions or pulmonary edema. The cardiac silhouette is normal in size. There are surgical clips in the bilateral axillary regions IMPRESSION: 1. NG tube is been repositioned with the distal tip projecting over the left upper quadrant of abdom en No evidence of pulmonary consolidation Report Dictated By: Deanna Salinas MD at 04/30/2017 8:37 AM Report E-Signed By: Deanna Salinas MD at 04/30/2017 8:39 AM WSN:[email or web address]
[2017-04-30] MEDS ORDERED: amLODIPine BESYL(*) 5 MG TAB PO SCH (09:00)
[2017-04-30] MEDS: ENOXAPARIN 40 MG/0.4ML SYR SC SCH (09:00)
[2017-04-30] MEDS: PANTOPRAZOLE SOD 40 MG IV VIAL IVP SCH (10:00)
[2017-04-30] MEDS: PREGABALIN 50 MG CAP PO SCH ×3 (10:00→21:03)
[2017-04-30 11:43] VITALS: BP 108/58
[2017-04-30] MEDS: ACETAMINOPHEN(*)1000 MG/100 ML 100 ML IVPB PRN ×2 (14:58→21:09)
[2017-04-30 15:52] VITALS: BP 132/61
--- NOTE | 2017-04-30 16:32 | Medical Nutrition Therapy ---
Nutrition Anthropometrics Weight (Pounds): 170 Weight (Calculated Kilograms): 77.281 BMI Calculated: 28.40 Daniel Nutrition Score: Probably Inadequate Daniel Nutrition Risk Score: 16 Dietary Referral Nutrition Risk Factors: Nutrition Risk Comment: Physical Findings Physical Appearance: Ht not available to calculate Wt status Skin Appearance Skin Appearance: Edema Edema Location Modifier: Edema Location: Type of Edema: Degree of Edema: Gastrointestinal Symptoms GI Symtoms: Nausea, Vomiting, Change in Bowel Pattern Tube Present: NG Bowel Sounds: Recent Bowel Pattern: Constipated Stool Characteristics: Nutrition/Food History N/V Nutritional Diagnosis Nutritional Risk Acuity 1: GI Obstruction Past Medical History: hypothyroid, HTN, hyperlipidemia Nutritional Acuity: 1-High Nutrition Diagnosis: Altered GI Function Nutrition Etiology: Physiological Causes Nutrition Problem/Etiology/Sym: Altered Gastrointestinal (GI) Function related to alteration in gastrointestinal tract function secondary to SBO AEB positive SBO diagnosis with CT of the abdomen and abdominal pain, nausea prior to admit. Protein Requirement: 77 Fluid Requirement: 2300 Diet Type: NPO/Meds Only Nutrition Intervention: Incr diet as tolerated Nutrition Monitoring & Eval Nutrition Goals: Eat 75-100% Meal RD Patient Assessment Time: [address] Assessment Type: RD Assessment Patient Nutrition Acuity: 1-High Follow Up Date: May 02, 2017 Nutritional Comment: Pt admitted for SBO. Alb 4.3. NPO at present. Follow clinical progression, labs, etc. GERARDO ALDANA Apr 30, 2017 16:32
[2017-04-30 19:12] VITALS: BP 118/42
[2017-04-30] MEDS: ZOLPIDEM TARTRATE 5 MG TAB PO SCH (21:00)
[2017-04-30] MEDS: amLODIPine BESYL(*) 5 MG TAB PO SCH (21:04)
[2017-04-30 23:21] VITALS: BP 119/82
[2017-05-01 03:18] VITALS: BP 100/49
[2017-05-01] MEDS: ACETAMINOPHEN(*)1000 MG/100 ML 100 ML IVPB PRN ×2 (04:19→17:44)
[2017-05-01] MEDS: NS(*) 0.9% 1000 ML BAG 1,000 ML IV PRN ×2 (04:57→17:27)
[2017-05-01] MEDS: LEVOTHYROXINE SOD 0.075 MG TAB PO SCH (05:51)
--- NOTE | 2017-05-01 06:08 | RADIOLOGY IMAGING REPORT ---
FACILITY: [facility] PATIENT NAME: Jing Arce : 1930 MR: [id number] V: [id number] EXAM DATE: ORDERING PHYSICIAN: CHERIE CORONA TECHNOLOGIST: Location: [facility] - [place] Patient: Jing Arce : 1930 Visit/Account:[id number] Date of Sevice: 05/01/2017 Single view of the abdomen Indication: Small bowel obstruction Comparison: April 30, 2017 Findings: Prominent loop of small bowel within the left upper quadrant measuring up to 3.5 cm, previously 2.8 c m. There are no pathologic calcifications identified. IMPRESSION: Prominent loops of small bowel within the left upper quadrant measuring up to 3.5 cm, increased since prior exam. Report Dictated By: Valente Willard MD at 05/01/2017 6:02 AM Report E-Signed By: Valente Willard MD at 05/01/2017 6:03 AM WSN:[id number]
[2017-05-01 06:25] LABS: PLATELET COUNT, AUTOMATED 179 K/uL (150-450)
--- NOTE | 2017-05-01 07:05 | General Surgery Progress Note ---
Subjective Progress Notes Subjective Only complaint this morning is that she didn't sleep well overnight. No pain. Passed "a little" flatus. No N/V. Physical Exam Vital Signs Date Time Temp Pulse Resp B/P (MAP) Pulse Ox O2 Delivery O2 Flow Rate FiO2 05/01/17 04:57 16 94 Blow-by 4.0 05/01/17 03:18 100/49 (66) 04/30/17 23:21 70 04/30/17 19:12 97.5 General Appearance: Alert, Awake, No Acute Distress, Afebrile GI: Other (Soft, mildly tender to right of umbilicus, no peritoneal signs, no palpable mass or bulge. Upper abdomen is a little tympanic to percussion) Extremities: Warm, Perfused Result Diagram: 05/01/17 0558 05/01/17 0558 Monitor Interpretation: Normal Sinus Rhythm (incomplete right bundle branch block) Assessment and Plan Problems: (1) Small bowel obstruction due to adhesions Status: Acute Assessment & Plan: 04/29/17: Admit, NPO, NG tube decompression, IV fluids. Will start with conservative therapy. If she fails to improve over the next 2- 3 days, she may require surgical exploration to determine the cause of the SBO and address it surgically. 04/30/17: Persistent SBO with nausea this morning. Will reattempt NG placement today with topical analgesics. May need to place endoscopically if unable to place NG tube at bedside. Would like to make every effort to avoid surgery if possible in this 86yo female with numerous major abdominal surgeries. 04/30/17 (evening): NG passed successfully this morning. It has put out 650mL of bilious fluid. No flatus yet. 05/01/17: Passed some flatus but KUB with a slightly increased dilated small bowel in RUQ. NG still with bilious output. Will get water-soluble SBFT today. Central Venous Access Medical Necessity for Access: IV Access, Medication Administration Condition Stable. Time Spent: < 30 min Exam Sepsis Risk: No Definite Risk CHERIE CORONA MD May 01, 2017 07:05
[2017-05-01 07:54] VITALS: BP 112/53
[2017-05-01] MEDS: ENOXAPARIN 40 MG/0.4ML SYR SC SCH (08:36)
[2017-05-01] MEDS: PREGABALIN 50 MG CAP PO SCH ×3 (08:36→22:13)
[2017-05-01] MEDS: PANTOPRAZOLE SOD 40 MG IV VIAL IVP SCH (08:36)
[2017-05-01] MEDS ORDERED: DIATRIZOATE MEGL/DIATRIZOA SOD 120 ML SOLN PO ONE (08:42)
[2017-05-01] MEDS: ONDANSETRON 4 MG/2 ML VIAL IVP PRN (10:04)
[2017-05-01] MEDS ORDERED: PROMETHAZINE 25 MG/ML 1 ML AMP IVP PRN (11:25)
[2017-05-01 15:22] VITALS: BP 139/65
[2017-05-01] MEDS: BENZOCAINE/MENTHOL 1 EACH LOZG PO PRN (19:52)
[2017-05-01 19:53] VITALS: BP 128/59
[2017-05-01] MEDS: amLODIPine BESYL(*) 5 MG TAB PO SCH (22:13)
[2017-05-01] MEDS: ZOLPIDEM TARTRATE 5 MG TAB PO SCH (22:14)
[2017-05-01 23:06] VITALS: BP 133/84
[2017-05-02 03:29] VITALS: BP 122/52
[2017-05-02] MEDS: NS(*) 0.9% 1000 ML BAG 1,000 ML IV PRN (04:05)
[2017-05-02] MEDS: LEVOTHYROXINE SOD 0.075 MG TAB PO SCH (05:53)
[2017-05-02 06:00] LABS: PLATELET COUNT, AUTOMATED 181 K/uL (150-450)
--- NOTE | 2017-05-02 07:10 | RADIOLOGY IMAGING REPORT ---
FACILITY: [facility] PATIENT NAME: Jing Arce : 1930 MR: [id number] V: [id number] EXAM DATE: ORDERING PHYSICIAN: CHERIE CORONA TECHNOLOGIST: [place] [facility] [place]ing [place] : 1930 Visit/Account:[id number] Date of Sevice: 05/01/2017 Small bowel series Indication: Small bowel obstruction Comparison: KUB dated May 01, 2017. CT dated April 29, 2017. Findings: Small bowel series was performed after patient ingested Gastrografin solution without difficulty. Mul tiple overhead images of the abdomen were obtained at various time points. Immediate images demonstra te prominence of the duodenal measuring up to 3.9 cm. There may be a small amount of contrast within the colon on the 8 hour films. Most of the contrast is within the colon by the 15 hour film. Nasogastric tube within the stomach. Mild degenerative changes within the lobar spine. No fluoroscopic images were obtained. IMPRESSION: Dilation of proximal small bowel measuring up to 3.9 cm. The transit time is delayed however contrast reaches the colon by 15 hours. Report Dictated By: Valente Willard MD at 05/02/2017 7:02 AM Report E-Signed By: Valente Willard MD at 05/02/2017 7:06 AM WSN:[id number]
[2017-05-02] MEDS: BENZOCAINE/MENTHOL 1 EACH LOZG PO PRN ×3 (07:12→16:34)
[2017-05-02 07:28] VITALS: BP 130/60
[2017-05-02] MEDS: KCL/D1/2NS 20 MEQ 1000 ML 1,000 ML IV SCH ×2 (08:06→21:03)
[2017-05-02] MEDS: ENOXAPARIN 40 MG/0.4ML SYR SC SCH (08:07)
[2017-05-02] MEDS: PANTOPRAZOLE SOD 40 MG IV VIAL IVP SCH (08:07)
[2017-05-02] MEDS: PREGABALIN 50 MG CAP PO SCH ×3 (08:08→21:04)
[2017-05-02 10:50] VITALS: BP 133/67
--- NOTE | 2017-05-02 13:11 | Medical Nutrition Therapy ---
Nutrition Anthropometrics Height (Inches): 65.50 Height (Calculated Centimeters: 166.029168 Weight (Pounds): 170 Weight (Calculated Kilograms): 77.281 BMI Calculated: 28.40 Daniel Nutrition Score: Adequate Daniel Nutrition Risk Score: 20 Dietary Referral Nutrition Risk Factors: Nutrition Risk Comment: Nutritional Diagnosis Nutritional Risk Acuity 1: GI Obstruction Past Medical History: hypothyroid, HTN, hyperlipidemia Nutritional Acuity: 1-High Nutrition Diagnosis: Altered GI Function Nutrition Etiology: Physiological Causes Nutrition Problem/Etiology/Sym: Altered Gastrointestinal (GI) Function related to alteration in gastrointestinal tract function secondary to SBO AEB positive SBO diagnosis with CT of the abdomen and abdominal pain, nausea prior to admit. Energy Requirement: 1575 (M- StJ) Protein Requirement: 77 Fluid Requirement: 1925 Diet Type: NPO/Meds Only Nutrition Intervention: Nutrition support, Incr diet as tolerated Nutritional Support Recommended Enteral / Parental: TPN Recommended Rate: 75 ml/hr Recommended Calories: 1836 Recommended Protein: 77 Nutrition Monitoring & Eval RD Patient Assessment Time: [address] Assessment Type: RD Re-Assessment Patient Nutrition Acuity: 1-High Follow Up Date: May 05, 2017 Nutritional Comment: 3 Pt admitted for SBO. Alb 4.3. NPO at present. Follow clinical progression, labs, etc. 05/02 Pt cont 4th day NPO. Nursing reporting hypoactive bowel. Recommend nutr support unless diet advanced. Will cont to monitor. NOREEN DAMON May 02, 2017 13:11
[2017-05-02 19:32] VITALS: BP 133/70
[2017-05-02] MEDS: amLODIPine BESYL(*) 5 MG TAB PO SCH (21:04)
[2017-05-02] MEDS: ZOLPIDEM TARTRATE 5 MG TAB PO SCH (21:08)
[2017-05-02] MEDS: KETOROLAC 30 MG/ML VIAL IVP PRN (21:25)
[2017-05-02 23:24] VITALS: BP 123/61
[2017-05-03] VITALS (7 sets, daily range): BP systolic 96–129; BP diastolic 57–85
[2017-05-03] MEDS: LEVOTHYROXINE SOD 0.075 MG TAB PO SCH (05:45)
[2017-05-03 06:32] LABS: PLATELET COUNT, AUTOMATED 164 K/uL (150-450)
--- NOTE | 2017-05-03 06:37 | RADIOLOGY IMAGING REPORT ---
FACILITY: [facility] PATIENT NAME: Jing Arce : 1930 MR: [id number] V: [id number] EXAM DATE: ORDERING PHYSICIAN: CHERIE CORONA TECHNOLOGIST: [place] [facility] [place] Jing Ar[place] : 1930 Visit/Account:[id number] Date of Sevice: 05/03/2017 KUB SINGLE VIEW ABDOMEN HISTORY: Small bowel obstruction. COMPARISON: 05/01/2017. FINDINGS: A single AP supine view of the abdomen is obtained. Lines/tubes: Enteric tube terminating in the distal stomach. Bowel gas pattern: No dilated air-filled loops of bowel, improved compared with 05/01/2017. Residual oral contrast material in the colon. Soft tissues: Negative. Bony structures: Negative. IMPRESSION: Interval resolution of dilated small bowel loops compared with 05/01/2017. Report Dictated By: Myles Morfin MD at 05/03/2017 6:33 AM Report E-Signed By: Myles Morfin MD at 05/03/2017 6:34 AM WSN:[id number]
--- NOTE | 2017-05-03 08:49 | General Surgery Progress Note ---
Subjective Progress Notes Subjective I feel better passing gas consistently NGT output low walking Physical Exam Vital Signs Date Time Temp Pulse Resp B/P (MAP) Pulse Ox O2 Delivery O2 Flow Rate FiO2 05/03/17 07:15 95 Nasal Cannula 1.0 05/03/17 07:15 98.1 70 16 129/65 (86) General Appearance: Alert, Awake, No Acute Distress, Afebrile ENT: Moist Mucous Membranes Cardiovascular: Regular Rate and Rhythm Respiratory: No Respiratory Distress GI: Soft and Non-Tender, Other Extremities: Warm, Other (no edema) Result Diagram: 05/03/17 0548 05/03/17 0548 Monitor Interpretation: Normal Sinus Rhythm (incomplete right bundle branch block) Assessment and Plan Problems: (1) Small bowel obstruction due to adhesions Status: Acute Assessment & Plan: 04/29/17: Admit, NPO, NG tube decompression, IV fluids. Will start with conservative therapy. If she fails to improve over the next 2- 3 days, she may require surgical exploration to determine the cause of the SBO and address it surgically. 04/30/17: Persistent SBO with nausea this morning. Will reattempt NG placement today with topical analgesics. May need to place endoscopically if unable to place NG tube at bedside. Would like to make every effort to avoid surgery if possible in this 86yo female with numerous major abdominal surgeries. 04/30/17 (evening): NG passed successfully this morning. It has put out 650mL of bilious fluid. No flatus yet. 05/01/17: Passed some flatus but KUB with a slightly increased dilated small bowel in RUQ. NG still with bilious output. Will get water-soluble SBFT today. 05/03/17: Passing gas consistently. KUB shows reduction of small bowel distension. NGT output low. Labs oK. Remove NGT and start on clear liquid diet. Drop IVFs to 50cc/hr. Suppository. Continue walking. Central Venous Access Medical Necessity for Access: IV Access, Medication Administration Time Spent: < 30 min Exam Sepsis Risk: No Definite Risk INA CLEVELAND MD May 03, 2017 08:49
[2017-05-03] MEDS: PREGABALIN 50 MG CAP PO SCH ×3 (09:18→21:29)
[2017-05-03] MEDS: ENOXAPARIN 40 MG/0.4ML SYR SC SCH (09:18)
[2017-05-03] MEDS: PANTOPRAZOLE SOD 40 MG IV VIAL IVP SCH (09:18)
[2017-05-03] MEDS: ACETAMINOPHEN(*)1000 MG/100 ML 100 ML IVPB PRN (13:25)
[2017-05-03] MEDS: ZOLPIDEM TARTRATE 5 MG TAB PO SCH (21:29)
[2017-05-03] MEDS: amLODIPine BESYL(*) 5 MG TAB PO SCH (21:29)
[2017-05-03] MEDS: KETOROLAC 30 MG/ML VIAL IVP PRN (21:29)
[2017-05-04 05:47] VITALS: BP 105/56
[2017-05-04] MEDS: LEVOTHYROXINE SOD 0.075 MG TAB PO SCH (05:47)
[2017-05-04 06:59] VITALS: BP 110/60
[2017-05-04] MEDS: PREGABALIN 50 MG CAP PO SCH (09:09)
[2017-05-04] MEDS: PANTOPRAZOLE SOD 40 MG IV VIAL IVP SCH (09:09)
[2017-05-04] MEDS: ENOXAPARIN 40 MG/0.4ML SYR SC SCH (09:09)
--- NOTE | 2017-05-04 09:11 | General Surgery Progress Note ---
Subjective Progress Notes Subjective "can I go home?" Physical Exam Vital Signs Date Time Temp Pulse Resp B/P (MAP) Pulse Ox O2 Delivery O2 Flow Rate FiO2 05/04/17 06:59 98.4 69 16 110/60 (77) 89 Room Air 05/03/17 07:15 1.0 General Appearance: Alert, Awake, No Acute Distress Eyes: PERRLA ENT: Moist Mucous Membranes Cardiovascular: Regular Rate and Rhythm Respiratory: No Respiratory Distress GI: Soft and Non-Tender Extremities: Soft and Non Tender Result Diagram: 05/03/17 0548 05/03/17 0548 Monitor Interpretation: Normal Sinus Rhythm (incomplete right bundle branch block) Assessment and Plan Problems: (1) Small bowel obstruction due to adhesions Status: Acute Assessment & Plan: 04/29/17: Admit, NPO, NG tube decompression, IV fluids. Will start with conservative therapy. If she fails to improve over the next 2- 3 days, she may require surgical exploration to determine the cause of the SBO and address it surgically. 04/30/17: Persistent SBO with nausea this morning. Will reattempt NG placement today with topical analgesics. May need to place endoscopically if unable to place NG tube at bedside. Would like to make every effort to avoid surgery if possible in this 86yo female with numerous major abdominal surgeries. 04/30/17 (evening): NG passed successfully this morning. It has put out 650mL of bilious fluid. No flatus yet. 05/01/17: Passed some flatus but KUB with a slightly increased dilated small bowel in RUQ. NG still with bilious output. Will get water-soluble SBFT today. 05/03/17: Passing gas consistently. KUB shows reduction of small bowel distension. NGT output low. Labs oK. Remove NGT and start on clear liquid diet. Drop IVFs to 50cc/hr. Suppository. Continue walking. 05/04/17: Tolerating fulls. Feels good. Would like to go home. Plan to discharge after lunch. Advance to regular diet Central Venous Access Medical Necessity for Access: IV Access, Medication Administration Exam Sepsis Risk: No Definite Risk INA CLEVELAND MD May 04, 2017 09:11
--- NOTE | 2017-05-04 09:14 | Hospitalist Depart ---
Discharge Summary Reason for Hosp/Final Diag: (1) Small bowel obstruction due to adhesions Status: Acute Hospital Course & Plan: 04/29/17: Admit, NPO, NG tube decompression, IV fluids. Will start with conservative therapy. If she fails to improve over the next 2-3 days, she may require surgical exploration to determine the cause of the SBO and address it surgically. 04/30/17: Persistent SBO with nausea this morning. Will reattempt NG placement today with topical analgesics. May need to place endoscopically if unable to place NG tube at bedside. Would like to make every effort to avoid surgery if possible in this 86yo female with numerous major abdominal surgeries. 04/30/17 (evening): NG passed successfully this morning. It has put out 650mL of bilious fluid. No flatus yet. 05/01/17: Passed some flatus but KUB with a slightly increased dilated small bowel in RUQ. NG still with bilious output. Will get water-soluble SBFT today. 05/03/17: Passing gas consistently. KUB shows reduction of small bowel distension. NGT output low. Labs oK. Remove NGT and start on clear liquid diet. Drop IVFs to 50cc/hr. Suppository. Continue walking. 05/04/17: Tolerating fulls. Feels good. Would like to go home. Plan to discharge after lunch. Advance to regular diet Departure Weight (Pounds): 170 Weight (Ounces): 6.0 Result Diagram: 05/03/1748 05/03/17547 Condition: Improved Discharge Instructions Home Meds Reported Medications Pregabalin (LYRICA) 100 Mg Capsule, 100 MG PO TID, CAPSULE 04/29/17 Zolpidem Tartrate (AMBIEN) 5 Mg Tablet, 1 TAB PO QHS, TAB 04/29/17 Amlodipine Besylate (AMLODIPINE BESYLATE) 5 Mg Tablet, 1 TAB PO QDAY, TAB 04/29/17 Cyanocobalamin (Vitamin B-12) (Vitamin B12) 2,500 Mcg Tablet, 2000 UNITS INJ 08/19/15 Levothyroxine Sodium (SYNTHROID) 75 Mcg Tablet, 75 MCG PO QDAY 12/14/13 Discontinued Reported Medications Methyldopa (METHYLDOPA) 500 Mg Tablet, 1000 MG PO BID 11/17/14 Discontinued Scripts Diazepam (DIAZEPAM) 5 Mg Tablet, 2.5-5 MG PO 2-3XD Y for DIZZINESS, #15 TAB Prov:MAGDALENA VANCE LEVEL VIAL SEALER 12/13/15 Ondansetron (ZOFRAN ODT) 4 Mg Tab.rapdis, 4 MG PO Q12H, #10 TAB TAKE 1 TABLET BY MOUTH EVERY 12 HOURS Prov:BG MCLAIN NP 08/30/15 Hydrocodone Bit/Acetaminophen (NORCO 5-325 TABLET) 1 Each Tablet, 1 EACH PO Q4- 6H Y for PAIN, #20 TAB Prov:MAGDALENA VANCE LEV[employer] VIAL SEALER 08/19/15 Diet: Regular Activity: As Tolerated, With Walker Copies to: CHERIE CORONA MD Venous Thromboembolism VTE Risk Physician Assess for VTE Risk: Yes Patient's VTE Risk: Low VTE Diagnostic Test 2 Days Prior to Admit: No Antithrombotics Is Pt On Any Antithrombotics?: Yes INA CLEVELAND MD May 04, 2017 09:14
[2017-05-04 10:31] VITALS: BP 105/59
== END 2017-05-04 13:26 | disposition home or self-care (01) | DRG 390 ==
LOC: ER 14:38 → MED 19:14
PROVIDERS: ADMIT Surgery; ATTEND Surgery
PROC: 0D9670Z Drainage of Stomach with Drainage Device, Via Natural or Artificial Opening (ICD-10-PCS; principal; 2017-04-30)
DX: K56.50 Intestinal adhesions [bands], unspecified as to partial versus complete obstruction (principal); I10 Essential (primary) hypertension; Z88.0 Allergy status to penicillin; Z88.8 Allergy status to other drugs, medicaments and biological substances; Z90.49 Acquired absence of other specified parts of digestive tract; E03.9 Hypothyroidism, unspecified; E78.5 Hyperlipidemia, unspecified; Z90.710 Acquired absence of both cervix and uterus; Z85.3 Personal history of malignant neoplasm of breast; Z85.828 Personal history of other malignant neoplasm of skin; Z87.891 Personal history of nicotine dependence
CPT/HCPCS: 36415; 71045; 71046; 74018; 74177; 74250; 81001; 82040; 82150; 82247; 82310; 82374; 82435; 82565; 82947; 83690; 84075; 84132; 84155; 84295; 84450; 84460; 84484; 84520; 85025; 85610; 93005; 96360; 99285; C9113; J0131; J1650; J1885; J2405; J2550; J3480; J7030; Q9967

== ENCOUNTER → 2017-12-30 | Outpatient (CLI) | payer MEDICARE, OTHER ==
[2014-05-23 14:26] VITALS: BMI 28.4
[~2017-12-30] MED LIST changes: +AMLO-111 PO; -AMLO-96 PO; -HYDR-4309 PO; +HYDR-653 PO; +IBUP-1687 PO; +[UNRECOGNIZED DRUG - CODE] PO; -[UNRECOGNIZED DRUG - CODE] PO
== END ==
LOC: LAB 08:41
PROVIDERS: ATTEND Surgery
DX: R19.7 Diarrhea, unspecified (principal)
CPT/HCPCS: 82274; 82705; 83630; 87045; 87177; 87205; 87324; 87449

== ENCOUNTER 2018-02-19 16:00 | Outpatient (RCR) | payer MEDICARE, OTHER ==
[2014-05-23 14:26] VITALS: BMI 28.4
--- NOTE | 2018-01-15 10:22 | PT INITIAL EVALUATION ---
MEDICAL DIAGNOSIS: RVQ/Flank pain TREATMENT DIAGNOSIS: same DATE OF ONSET: 01/14/14 SUBJECTIVE: Jing Arce presents to physical therapy with complaints of RVQ/Flank pain as a result of multiple surgeries in the last 3.5 to 4 years ago. Furthermore, she states that she has adhesions against the abdominal wall that have become more painful in the recent months. She reports that the pain has wrapped to the spine only a couple of times since the pain has been getting worse in the last few months. She reports increased RVQ/Flank pain with bending or rising. She reports that she does not typically feel any pain with sitting, walking, and lying. She rates her current pain to be 0/10. She reports normal bladder control. She denies any pain with cough, sneezing, or straining. She denies any night pain, unexplained weight loss, recent accidents, or any falls. She reports that there is no change with change of posture. Pain location is RVQ/Flank and described as . Pain scale is 0 on a ten point pain scale. REHAB PROBLEM LIST: Increased Pain Decreased ROM Decreased Strength Decreased Endurance Decreased Balance Decreased Function Decreased ADL's Decreased Mobility Decreased Gait PREVIOUS MEDICAL HISTORY: See EMR OCCUPATION: Retired OBJECTIVE: Posture: She demonstrates forward head position, increased thoracic kyphosis, and decreased lumbar lordosis. ROM: Trunk AROM: flexion: NIL with normal end feel. extension: minimal restriction with muscular end feel. side gliding R: NIL with normal end feel. side gliding L: NIL with normal end feel. Strength: Core: 4-/5. B LE's: 4+/5 Palpation: TTP: along healed incision on R along with adhesions Special Tests: Repeated flexion: stretch during the test and same following the test. Repeated extension: stretch during the test and same following the test. Mobility: Modified Independent Gait: She demonstrated increased base of support, decreased velocity, decreased B UE movement, decreased B step lengths, decreased B step clearance, and no LOB's. ASSESSMENT: Jing will benefit from skilled physical therapy addressing the listed impairments to improve function and return to prior level of function. Short Term Goals 6 weeks: Pt will demonstrate decreased adhesions along her incisional line on the R flank to improve function and QOL. 6 weeks: Pt will demonstrate abolished R flank pain and return to prior level of function to improve function and QOL. Patient's Goals decrease pain with her scar adhesions PLAN: Patient to be seen for Manual Therapy/STM/MET Strengthening/condition Range of Motion Spinal Stabilization Work Hardening/Cond Stretching Closed Chain Program Posture/Body mechanics Gait Trg/Balance Trg Home Exercise Program Therapeutic Activities 2x/Week for 6 Weeks If you have any questions, comments, or concerns about this report or plan, please contact me at . Thank you, Boo Brown, PT, DPT MTDD
[~2018-02-19 16:00] MED LIST changes: -AMLO-111 PO; +AMLO-125 PO
--- NOTE | 2018-02-19 18:04 | PT PLAN OF CARE ---
Physician: Scott Anthony MD Patient is being seen: 2x/week Therapist: Boo Brown, PT, DPT Medical Diagnosis: RVQ/Flank pain Treatment Diagnosis: same Date of Onset: 01/14/14 Date of Initial Evaluation: 01/14/18 Date patient was last seen: 02/19/18 Number of treatments: 10 Number of cancellations/No shows: 0 INTERVENTIONS: Manual Therapy/STM/MET Strengthening/condition Range of Motion Spinal Stabilization Work Hardening/Cond Stretching Closed Chain Program Posture/Body mechanics Gait Trg/Balance Trg Home Exercise Program Therapeutic Activities GOALS: 6 weeks: Pt will demonstrate decreased adhesions along her incisional line on the R flank to improve function and QOL. MET 6 weeks: Pt will demonstrate abolished R flank pain and return to prior level of function to improve function and QOL. MET PATIENT'S GOAL: decrease pain with her scar adhesions Status of Patient's Goals: MET Patient Compliance: Good Prognosis: Good Reasons for continuing therapy: This is a a discharge note for Jing Arce. She reports that she is doing much better. She reports that she will occasionally feel a sharp pain for less than 30 seconds when bending forward. She reports that she no longer feels any pain with eating or digestion, which she states is a huge improvement.She demonstrates increased accessory mobility around her incision, decreased scar tissue adhesions, decreased sensitivity, and independent with her program moving forward. She feels confident in her program and feels like it is time to discharge. As a result, she will be discharged from PT to [facility]. Posture: She demonstrates forward head position, increased thoracic kyphosis, and decreased lumbar lordosis. ROM: Trunk AROM: flexion: NIL with normal end feel. extension: minimal restriction with muscular end feel. side gliding R: NIL with normal end feel. side gliding L: NIL with normal end feel. Strength: Core: 4-/5. B LE's: 4+/5 Special Tests: Repeated flexion: stretch during the test and same following the test. Repeated extension: stretch during the test and same following the test. Mobility: Modified Independent If you have any questions, please contact me at [phone]. Thank you, Boo Brown, PT, DPT [facility]
== END 2018-02-19 18:00 | disposition home or self-care (01) ==
LOC: PT 16:00
PROVIDERS: ATTEND Surgery
DX: R10.11 Right upper quadrant pain (principal); R10.9 Unspecified abdominal pain
CPT/HCPCS: 97162

== ENCOUNTER → 2018-03-17 | Outpatient (CLI) | payer MEDICARE, OTHER ==
[2014-05-23 14:26] VITALS: BMI 28.4
[~2018-03-17] MED LIST changes: +BARIUM SULFATE 176 GM BTL PO ONE; +BARIUM SULFATE 340 GM POWD ONE; +IOPAMIDOL 76% 100 ML INFUS BTL 100 ML ONE
--- NOTE | 2018-03-17 11:39 | RADIOLOGY IMAGING REPORT ---
FACILITY: [facility] [place] PATIENT NAME: Jing Arce : 1930 MR: [id number] V: [id number] EXAM DATE: ORDERING PHYSICIAN: CHERIE CORONA TECHNOLOGIST: [facility] Patient: Jing Arce : 1930 Visit/Account:[id number] Date of Sevice: 03/17/2018 CT ABDOMEN PELVIS W/ CON HISTORY: Diffuse abdomen pain TECHNIQUE: Following administration of IV contrast contiguous axial images acquired through the abdom en/pelvis. Coronal and sagittal reformatting also performed.Dose Lowering Technique One of the following dose optimization techniques was utilized in the performance of this exam: Autom ated exposure control; adjustment of the mA and/or kV according to the patient's size; or use of an i terative reconstruction technique. Specific details can be referenced in the facility's radiology C T exam operational policy. CONTRAST: 75 mL Isovue-370 COMPARISON: April 29, 2017 FINDINGS: Visualized lung bases: There is minimal linear scarring in the lung bases Hepatobiliary: There postsurgical changes from a cholecystectomy Spleen: Negative. Adrenals: Negative. 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 There is a 3.5 cm lower pole right renal cyst. . Parapelvic cyst inferior left kidney Genitalia: The uterus is either severely atrophic or surgically absent GI: There Is an anastomosis in the sigmoid colon. There are several scattered diverticula in the lef t-sided colon although no CT evidence of acute diverticulitis. There is an additional colonic enteri c anastomosis in the right lower quadrant. There is no evidence of bowel obstruction. There is a sm all hiatal hernia Vessels/spaces/nodes: There extensive atherosclerotic calcifications throughout the abdominal aorta and branch vessels. There is moderate narrowing at the origins of both renal arteries. 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 There are spondylotic changes lumbar spine Additional findings: None pertinent. IMPRESSION: Postsurgical changes of the large and small bowel as described with no evidence of a bowel obstructio n at this time Postsurgical changes from a cholecystectomy and probable hysterectomy Small hiatal hernia Extensive atherosclerotic calcifications as described Additional chronic findings Report Dictated By: Deanna Salinas MD at 03/17/2018 11:23 AM Report E-Signed By: Deanna Salinas MD at 03/17/2018 11:34 AM JUANA:NASIR
--- NOTE | 2018-03-17 16:02 | RADIOLOGY IMAGING REPORT ---
FACILITY: [facility] PATIENT NAME: Jing Arce : 1930 MR: [id number] V: [id number] EXAM DATE: [id number] ORDERING PHYSICIAN: CHERIE CORONA TECHNOLOGIST: Location: [facility] [place] Patient: Jing Arce : 1930 Visit/Account:[id number] Date of Sevice: 03/17/2018 Exam type: XR UPPER GI & SM BOWEL History: abd pain, diarrhea difficulty swallowing, past history of bowel obstruction Comparison: CT abdomen pelvis performed today. Findings: Pulmonary mandarin teacher film the abdomen demonstrates contrast in the nondistended renal collecting systems u reters and bladder from today's CT scan Double contrast upper GI series was performed with thick and thin barium. There is a small hiatal he rnia with mild narrowing at the lower esophageal sphincter. No abnormality of the stomach duodenal b ulb or duodenal C-loop was seen. The patient received additional barium orally and the barium was fo llowed throughout the small bowel to the right-sided the colon. It took 15 minutes from the patient' s completion of the second dose of thin barium to the visualization of the hepatic flexure. There is no evidence of bowel obstruction. No mucosal abnormality no extrinsic mass effect. The fluoroscopy dose area product was 1148.23 micro-Chavez per meter squared IMPRESSION: 1. Small hiatal hernia with mild narrowing at the GE junction. The remainder of the stomach and small bowel series was unremarkable Report Dictated By: Deanna Salinas MD at 03/17/2018 3:51 PM Report E-Signed By: Deanna Salinas MD at 03/17/2018 3:56 PM WSN:[email or web address]
== END ==
LOC: CT 01:00
PROVIDERS: ATTEND Surgery
DX: K44.9 Diaphragmatic hernia without obstruction or gangrene (principal)
CPT/HCPCS: 36415; 74177; 74245; 82565; Q9967